=== PATIENT | male | born 1960 | race Caucasian/White ===

== ENCOUNTER → 2016-10-10 | Outpatient (CLI) | payer BC | LOC: LAB 07:59 | PROVIDERS: ATTEND Urology | DX: N40.0 Benign prostatic hyperplasia without lower urinary tract symptoms (principal) | CPT/HCPCS: 36415; 84153 ==

== ENCOUNTER → 2017-01-03 | Outpatient (CLI) | payer BC ==
[~2017-01-03] MED LIST: AC500T PO; AMLO10TA82 PO; ASPI-345 PO; CHOL10002 PO; CLONAZEPAM PO; CRANBERRY; FISH OIL500 M1; HYDR-3754 PO; LSNP20T PO; MTC10T PO; MULT-330 PO; NCT7P TOP
[2017-01-03 10:13] LABS: BASOPHILS % (AUTO) 0 % (0-2); EOSINOPHILS # (AUTO) 0.1 10^3uL; EOSINOPHILS % (AUTO) 2 % (0-4); LYMPHOCYTES # (AUTO) 1.6 X10^3; MEAN CORPUSCULAR HGB CONC 34.7 g/dL (31.0-37.0); MEAN CORPUSCULAR VOLUME 90 FL (80-100); MEAN PLATELET VOLUME 9.4 FL (6.0-9.5); MONOCYTES # (AUTO) 0.7 X10^3; MONOCYTES % (AUTO) 12 % (3-11); NEUTROPHILS # (AUTO) 3.7 X10^3; NEUTROPHILS % (AUTO) 60 % (51-67); PLATELET COUNT 286 10^3uL (150-450); WHITE BLOOD COUNT 6.08 10^3uL (4.0-11.0)
[2017-01-03 10:14] LABS: MEAN CORPUSCULAR HEMOGLOBIN 31.4 PG (26.0-34.0)
== END ==
LOC: LAB 10:03
PROVIDERS: ATTEND Family Medicine
DX: D68.4 Acquired coagulation factor deficiency (principal)
CPT/HCPCS: 36415; 85025; 85610; 85730